=== PATIENT | female | born 2000 | race Caucasian/White ===

== ENCOUNTER 2019-09-24 06:37 | Day surgery (SDC) | payer BC ==
[2019-09-21 12:14] LABS: Absolute Lymphocytes (CBC) 1.7 K/uL (0.7-4.9); Basophils % 0.9 % (0-1.3); Hematocrit 38.6 % (36.0-45.0); Lymphocytes % 32.9 % (15.3-44.8); MPV 10.2 fL (7.6-11.3); RBC Red Blood Cell Count 4.42 M/uL (3.86-4.86)
[2019-09-21 12:18] LABS: Urine Appearance CLEAR; Urine Bilirubin NEGATIVE (NEG); Urine Blood NEGATIVE (NEG); Urine Color YELLOW; Urine Glucose NEGATIVE (NEG); Urine Protein NEGATIVE (NEG); Urine Specific Gravity >=1.030 (1.005-1.030); Urine Urobilinogen 0.2 mg/dL (0.2-1.0); Urine pH 6.5 (5.0-7.0)
[2019-09-21 12:23] LABS: Urine Microscopic Reflex ORDER UMIC
[2019-09-21 13:04] LABS: Urine Bacteria <20 /HPF (<20); Urine Culture Reflex Order NOT NEEDED; Urine Mucus LIGHT /HPF (NONE SEEN); Urine RBC <5 /HPF (NONE SEEN)
[2019-09-24 06:59] LABS: Specific Gravity 1.025 (1.005-1.030)
[2019-09-24] MEDS ORDERED: Ringers Lactate 1,000 ML IV ONE (07:10)
[2019-09-24] MEDS ORDERED: SCOPOLAMINE HYDROBROMIDE PATCH TD ONE (07:10)
[2019-09-24] MEDS ORDERED: NA CHLORIDE 0.9% 1,000 ML ONE (07:11)
[2019-09-24] MEDS ORDERED: BUPIVACAINE 0.25% PF 30 ML VIAL ONE (07:11)
[2019-09-24] MEDS ORDERED: FENTANYL CITR 100 MCG/2 ML ONE (07:12)
[2019-09-24] MEDS ORDERED: dexAMETHasone 10 MG/ML VIAL ONE (07:13)
[2019-09-24] MEDS ORDERED: propofoL 200 MG/20 ML VIAL IV ONE (07:13)
[2019-09-24] MEDS ORDERED: ONDANSETRON 4 MG/2 ML VIAL ONE ×2 (07:13→10:12)
[2019-09-24] MEDS ORDERED: ROCURONIUM 50 MG/5 ML VIAL IV ONE (07:13)
[2019-09-24] MEDS ORDERED: MIDAZOLAM HCL 2 MG/2 ML INJ ONE (07:13)
[2019-09-24] MEDS ORDERED: LIDOCAINE 2% MPF 5 ML VIAL ONE (07:13)
[2019-09-24] MEDS ORDERED: KETOROLAC 30 MG/ML INJ ONE (08:57)
[2019-09-24] MEDS ORDERED: MEPERIDINE HCL 25 MG/ML SYR ONE (09:23)
[2019-09-24] MEDS ORDERED: HYDROMORPHONE HCL 1 MG/ML INJ ONE (09:50)
[2019-09-24] MEDS ORDERED: HYDROCODONE/APAP 5/325 MG TAB ONE (10:33)
--- NOTE | 2019-09-24 10:55 | OP ---
Date of Procedure: 09/24/2019 Surgeon: Mirian Calvert MD Lead Fire Protection Engineer: Trista Hinojosa. Preoperative Diagnoses: Dysmenorrhea, dyspareunia, possible bicornuate uterus. Postoperative Diagnoses: Confirmation of the uterine anomaly, bicornuate uterus, dysmenorrhea, and d yspareunia. No endometriosis. Constipation. Procedures Performed: Diagnostic hysteroscopy, diagnostic laparoscopy. Estimated Blood Loss: Minimal. Specimens: No specimens. Complications: No complications. Drains: No drains. Condition: The patient's condition is stable. Findings: On hysteroscopy, there was a clear indentation on the top 1/3rd of the uterine cavity, whi ch appeared to be a wall that has not resolved, it did not appear to be a septum. Both tubal ostia w ere well visualized. The cavity was symmetric. No intracavitary lesions were seen. On diagnostic laparoscopy, on the fundus there was a small indentation, very minor in the center conf irming the bicornuate uterus. Both tubes, ovaries unremarkable. Entire pelvic, peritoneum was inspe cted closely. No evidence of any endometriotic lesions was found. In the left lateral sidewall betw een the ureter and the left uterosacral ligament, there was slight inflammation on the peritoneum, ho wever, no implants were visualized on very close careful examination. In the cul-de-sac, very simila r findings, slight inflammation on the peritoneum reflecting off the posterior vaginal wall onto the rectum, but no implants were noted. Appendix, liver were completely unremarkable. The cecum was red undant in the pelvis as well as the entire left colon including the transverse colon were completely full of hard stool and the hard stools were very prominent. No evidence of any diverticula was noted . The patient was extubated in the OR and taken to the PACU in stable condition. The patient is a 19-year-old female who has been under my care for dysmenorrhea pelvic pain, dyspareu shaun. She has been tried on combination contraceptives. Her bleeding has been controlled, however he r pain has not improved. The pain in between her period sometimes is severe enough for her to need s ome pain medication and sometimes causes dysfunction, nausea. Despite good suppression on the combin ation contraceptives since patient has pain, discussed about the options of observation versus surgic al management to look for endometriosis. On vaginal ultrasound, there was suspected bicornuate uteru s. No other findings were noted. So to confirm diagnosis of uterine anomaly, diagnostic hysteroscop y and laparoscopy for ruling out endo. Description Of Procedure: After informed consent was verified, she was brought to the OR, placed in the supine fashion on the operating table, general anesthesia was given, placed in the dorsal lithoto my position. Abdomen, vulva, vagina, and perineum prepped and draped in a sterile fashion. Time-out was done. Arms tucked by the side. SCDs started. Then, procedure started vaginally. Salinas was pl aced to drain the bladder. Speculum placed to expose the cervix. Anterior lip grasped with 2 Allis clamps. SlimLine diagnostic hysteroscope was used to traverse the cervical canal under direct vision into the uterine cavity. Cavity findings as above consistent with central division of the uterine c avity. No intracavitary lesions. Scope pulled out. Diagnostic uterine manipulator was placed. Fol ey was connected to a bag. This area was draped. 1 cm infraumbilical incision made with the scalpel using the open laparoscopy technique. Fascia was incised, tagged with 0 Vicryl sutures, peritoneum entered sharply. S-retractors were placed. Breezy introduced, insufflation obtained adequately and then started the procedure. Upper abdominal surfac es were inspected quickly unremarkable excepting slight scarring on the edge of the right lobe of the liver. The patient was placed in Trendelenburg, 5 mm suprapubic and left lower quadrant ports were placed under direct vision after injecting with Marcaine at the skin and fascial levels. Then, the p elvic cavity was inspected. Findings as above. After thorough inspection and irrigation in the post erior cul-de-sac as well as lateral ramos and reinspection, the scope was pulled out after examining the colon with findings as above. The trocars were removed, gas was desufflated in a closed fashion. Then all the skin incisions injected with Marcaine again. Fascial incision closed with tagged 0 Vi cryl sutures, tied to each other, injected at the umbilical level and the fascia with 0.25% Marcaine. All the skin incisions closed with interrupted 4-0 Vicryl sutures. Salinas and VCare and the diagnos tic manipulator removed. Instrument, needle, sponge counts were correct at the end of the case. The patient tolerated the procedure well. She will be discharged home today after recovery and she will have a 1 week followup. GRIFFIN Voice ID: [id number] Report ID: [id number]
[2019-09-24 12:53] VITALS: BP 98/53; TEMP 98; O2SAT 99
== END 2019-09-24 11:00 | disposition home health service (06) ==
LOC: OR 06:37
PROVIDERS: ATTEND Obstetrics & Gynecology
PROC: 0UJD8ZZ Inspection of Uterus and Cervix, Via Natural or Artificial Opening Endoscopic (ICD-10-PCS; 2019-09-24)
PROC: 0WJJ4ZZ Inspection of Pelvic Cavity, Percutaneous Endoscopic Approach (ICD-10-PCS; principal; 2019-09-24 07:30)
DX: N94.6 Dysmenorrhea, unspecified (principal); N94.10 Unspecified dyspareunia; Q51.3 Bicornate uterus; K59.00 Constipation, unspecified; K65.9 Peritonitis, unspecified
CPT/HCPCS: 85025; 36415; 86900; 86850; 81025; 86901; 49320; 58555; J2704; J2250; J3010; J1100; J2175; J1170; J7120; J7030; J2405 ×2; 81003; 81015